=== PATIENT | female | born 1995 | race Caucasian/White ===

== ENCOUNTER → 2024-01-26 11:11 | Outpatient (REF) | payer OTHER, SELFPAY | LOC: HWRAD 11:11 | PROVIDERS: ATTENDING PHYSICIAN Nurse Practitioner | DX: S39.92XA Unspecified injury of lower back, initial encounter (principal) | CPT/HCPCS: 72110 ==

== ENCOUNTER → 2025-04-04 11:29 | Outpatient (REF) | payer OTHER, SELFPAY | LOC: HWRAD 11:29 | PROVIDERS: FAMILY PHYSICIAN Nurse Practitioner Adult Health | DX: M79.672 Pain in left foot (principal) | CPT/HCPCS: 73630 ==